=== PATIENT | female | born 1995 | race Caucasian/White ===

== ENCOUNTER 2018-06-11 07:26 | Emergency (ER) | payer BC, OTHER ==
--- NOTE | 2018-06-11 07:40 | EDPHY ---
H & P Stated Complaint: r flank and abd pain/dysuria Time Seen by Provider: 06/11/18 07:39 HPI/ROS: CHIEF COMPLAINT: Acute right flank pain HISTORY OF PRESENT ILLNESS: The patient presents to the ED with acute right flank pain and right mid abdominal pain that began yesterday. The patient reports associated nausea. She has had questionable mild dysuria. The patient denies any fever, cough or congestion. She denies vomiting or diarrhea. Past surgical history is significant for a right ovarian dermoid cyst which was removed. The patient does have an IUD. She denies any vaginal bleeding or discharge. The patient reports her symptoms are moderate in nature and rates her pain is 7/10. The patient has no significant past medical history. She does take Wellbutrin. REVIEW OF SYSTEMS: A comprehensive 10 point review of systems is otherwise negative aside from elements mentioned in the history of present illness. Source: Patient Exam Limitations: No limitations - Personal History LMP (Females 10-55): IUD In Place Current Tetanus/Diphtheria Vaccine: Yes - Medical/Surgical History Hx Asthma: No Hx Chronic Respiratory Disease: No Hx Diabetes: No Hx Cardiac Disease: No Hx Renal Disease: No Hx Cirrhosis: No Hx Alcoholism: No Hx HIV/AIDS: No Hx Splenectomy or Spleen Trauma: No Other PMH: Ovarian cyst - Family History Significant Family History: No pertinent family hx - Social History Smoking Status: Never smoked Drug Use: Marijuana - Physical Exam Exam: General Appearance: Alert, no distress Eyes: Pupils equal and round no pallor or injection ENT, Mouth: Mucous membranes moist Respiratory: There are no retractions, lungs are clear to auscultation Cardiovascular: Regular rate and rhythm Back: Mild right CVA tenderness Gastrointestinal: Tenderness to palpation right mid abdomen and upper abdomen Neurological: 5/5 strength all 4 extremities Skin: Warm and dry, no rashes Musculoskeletal: Neck is supple nontender Extremities: symmetrical, full range of motion Constitutional: Initial Vital Signs Temperature (C) 36.4 C 06/11/18 07:28 Heart Rate 63 06/11/18 07:28 Respiratory Rate 18 06/11/18 07:28 Blood Pressure 102/62 06/11/18 07:28 O2 Sat (%) 97 06/11/18 07:28 O2 Delivery Mode Room Air Allergies/Adverse Reactions: No Known Allergies Allergy (Unverified 06/11/18 07:27) Home Medications: Medication Instructions Recorded Hydrocodone/APAP 5/325 [Knightsen 1 - 2 each PO Q6 PRN #20 tab 06/11/18 5/325] Kyleena 06/11/18 Ondansetron Odt [Zofran Odt] 4 mg PO Q4PRN PRN #20 tab 06/11/18 buPROPion 06/11/18 Medical Decision Making - Diagnostics Imaging Results: Imaging Impressions Abdomen/Pelvis CT 06/11/18 08:36 Impression: 1. Mild right hydroureteronephrosis, with a 1-mm calculus in the distal right ureter. 2. No additional nephrolithiasis or left hydronephrosis. 3. Constipation. 4. IUD appears in satisfactory position without definite adnexal masses. 5. No evidence of appendicitis. Attention: This CT examination is specifically designed to evaluate patients who are clinically suspected of having acute obstructive uropathy. This examination does not use radiographic contrast, and as such, provides only a limited evaluation of the abdomen, pelvis and retroperitoneum. If there is further clinical suspicion for pathological conditions other than obstructive uropathy, a complete CT evaluation of the abdomen and pelvis utilizing intravenous, oral, and rectal contrast should be considered. Findings and recommendations discussed with Emergency Department physician, Dr. Trey Hutchison at 0857 hours on June 11, 2018. Final report concurs with initial preliminary interpretation. ED Course/Re-evaluation: The patient presents to the ED for evaluation of acute right flank pain. The patient was noted to be nontoxic and well-appearing. Patient's urinalysis was unremarkable. The patient's laboratory testing is also normal. Given the uncertainty of her diagnosis and her poorly localized pain on exam a CT scan of the abdomen pelvis was obtained. Patient does have mild right hydronephrosis and a very small distal right ureteral stone 1 mm in size. Patient was treated with 15 mg of Toradol in the emergency department. Re-evaluation of the patient at 9:20 a.m.: She is feeling much better. Her pain has resolved entirely. She is discharged home with customary aftercare instructions and return precautions. Differential Diagnosis: Differential diagnosis considered includes ureterolithiasis, pyelonephritis, peptic ulcer disease, cholecystitis, appendicitis - Data Points Laboratory Results: Laboratory Results 06/11/18 07:45 06/11/18 07:45 06/11/18 06/11/18 06/11/18 07:45 07:45 07:45 WBC RBC Hgb Hct MCV MCH MCHC RDW Plt Count MPV Neut % (Auto) Lymph % (Auto) [place] % (Auto) Eos % (Auto) Baso % (Auto) Nucleat RBC Rel Count Absolute Neuts (auto) Absolute Lymphs (auto) Absolute Monos (auto) Absolute Eos (auto) Absolute Basos (auto) Absolute Nucleated RBC Immature Gran % Immature Gran # Sodium 138 mEq/L mEq/L (135-145) Potassium 3.9 mEq/L mEq/L (3.5-5.2) Chloride 106 mEq/L mEq/L (97-110) Carbon Dioxide 26 mEq/l mEq/l (22-31) Anion Gap 6 mEq/L mEq/L (6-14) BUN 11 mg/dL mg/dL (7-23) Creatinine 0.8 mg/dL mg/dL (0.6-1.0) Estimated GFR > 60 Glucose 86 mg/dL mg/dL (70-100) Calcium 9.0 mg/dL mg/dL (8.5-10.4) Total Bilirubin 0.6 mg/dL mg/dL (0.1-1.4) Conjugated Bilirubin 0.3 mg/dL mg/dL (0.0-0.5) Unconjugated Bilirubin 0.3 mg/dL mg/dL (0.0-1.1) AST 15 IU/L IU/L (14-46) ALT 17 IU/L IU/L (9-52) Alkaline Phosphatase 71 IU/L IU/L (38-126) Total Protein 7.0 g/dL g/dL (6.3-8.2) Albumin 4.1 g/dL g/dL (3.5-5.0) Lipase 102 IU/L IU/L (23-300) Beta HCG, Qual NEGATIVE Urine Color Urine Appearance Urine pH Ur Specific [place] Urine Protein Urine Ketones Urine Blood Urine Nitrate Urine Bilirubin Urine Urobilinogen Ur Leukocyte Esterase Urine Glucose 06/11/18 06/11/18 07:45 07:36 WBC 6.91 10^3/uL 10^3/uL (3.80-9.50) RBC 4.49 10^6/uL 10^6/uL (4.18-5.33) Hgb 13.5 g/dL g/dL (12.6-16.3) Hct 41.0 % % (38.0-47.0) MCV 91.3 fL fL (81.5-99.8) MCH 30.1 pg pg (27.9-34.1) MCHC 32.9 g/dL g/dL (32.4-36.7) RDW 12.1 % % (11.5-15.2) Plt Count 290 10^3/uL 10^3/uL (150-400) MPV 10.1 fL fL (8.7-11.7) Neut % (Auto) 51.0 % % (39.3-74.2) Lymph % (Auto) 37.8 % % (15.0-45.0) [place] % (Auto) 7.7 % % (4.5-13.0) Eos % (Auto) 2.3 % % (0.6-7.6) Baso % (Auto) 0.9 % % (0.3-1.7) Nucleat RBC Rel Count 0.0 % % (0.0-0.2) Absolute Neuts (auto) 3.53 10^3/uL 10^3/uL (1.70-6.50) Absolute Lymphs (auto) 2.61 10^3/uL 10^3/uL (1.00-3.00) Absolute Monos (auto) 0.53 10^3/uL 10^3/uL (0.30-0.80) Absolute Eos (auto) 0.16 10^3/uL 10^3/uL (0.03-0.40) Absolute Basos (auto) 0.06 10^3/uL 10^3/uL (0.02-0.10) Absolute Nucleated RBC 0.00 10^3/uL 10^3/uL (0-0.01) Immature Gran % 0.3 % % (0.0-1.1) Immature Gran # 0.02 10^3/uL 10^3/uL (0.00-0.10) Sodium Potassium Chloride Carbon Dioxide Anion Gap BUN Creatinine Estimated GFR Glucose Calcium Total Bilirubin Conjugated Bilirubin Unconjugated Bilirubin AST ALT Alkaline Phosphatase Total Protein Albumin Lipase Beta HCG, Qual Urine Color YELLOW Urine Appearance HAZY Urine pH 5.0 (5.0-7.5) Ur Specific [place] 1.017 (1.002-1.030) Urine Protein NEGATIVE (NEGATIVE) Urine Ketones NEGATIVE (NEGATIVE) Urine Blood NEGATIVE (NEGATIVE) Urine Nitrate NEGATIVE (NEGATIVE) Urine Bilirubin NEGATIVE (NEGATIVE) Urine Urobilinogen NEGATIVE EU EU (0.2-1.0) Ur Leukocyte Esterase NEGATIVE (NEGATIVE) Urine Glucose NEGATIVE (NEGATIVE) Medications Given: Discontinued Medications Sodium Chloride (Ns) 1,000 mls @ 0 mls/hr IV EDNOW ONE; Wide Open PRN Reason: Protocol Stop: 06/11/18 07:49 Last Admin: 06/11/18 07:56 Dose: 1,000 mls Ketorolac Tromethamine (Toradol) 15 mg IVP EDNOW ONE Stop: 06/11/18 07:55 Last Admin: 06/11/18 07:56 Dose: 15 mg Ondansetron HCl (Zofran) 4 mg IVP EDNOW ONE Stop: 06/11/18 07:55 Last Admin: 06/11/18 07:56 Dose: 4 mg Departure - Departure Disposition: Home, Routine, Self-Care Clinical Impression: Kidney stone on right side Condition: Good Instructions: Kidney Stones (ED) Additional Instructions: 1. Take Ibuprofen or Motrin 600 mg by mouth three times a day. 2. Percocet as needed for severe pain 3. Zofran as needed for nausea 4. Strain urine as directed 5. Return to the Emergency Department for intractable pain, fever or vomiting. 6. Followup with the urologist you have been referred to for unimproved symptoms. Referrals: MARK HOUSER [Other] - As per Instructions Tristan Davila MD [Medical Doctor] - As per Instructions Prescriptions: Hydrocodone/APAP 5/325 [Knightsen 5/325] 1 - 2 each PO Q6 PRN #20 tab PRN Reason: for pain Ondansetron Odt [Zofran Odt] 4 mg PO Q4PRN PRN #20 tab PRN Reason: For Nausea
[2018-06-11] MEDS ORDERED: NS 1,000 ML IV ONE (07:48)
[2018-06-11] MEDS ORDERED: KETOROLAC 15 MG/1 ML SDV ONE (07:51)
[2018-06-11] MEDS ORDERED: ONDANSETRON 4 MG/2 ML VIAL ONE (07:51)
[2018-06-11] MEDS ORDERED: ONDANSETRON 4 MG/2 ML VIAL IVP ONE (07:54)
[2018-06-11] MEDS ORDERED: KETOROLAC 15 MG/1 ML SDV IVP ONE (07:54)
[2018-06-11 07:57] LABS: PLATELET COUNT 290 10^3/uL (150-400)
[2018-06-11 09:46] VITALS: BP 111/61
== END 2018-06-11 09:46 | disposition home or self-care (01) ==
DX: N20.1 Calculus of ureter (principal)
CPT/HCPCS: 96374; J1885; J2405